=== PATIENT | female | born 1975 | race Caucasian/White ===

== ENCOUNTER → 2018-01-30 | Outpatient (CLI) | payer OTHER ==
[~2018-01-30] MED LIST: BENTYL 20 MG TA20 M1 PO; HYDROCODONE-AP1 EAC6 PO; PRILOSEC 20 MG20 MG PO; ZOFRAN ODT4 MG DISSOLVE
== END ==
LOC: RAD 11:56
DX: Z12.31 Encounter for screening mammogram for malignant neoplasm of breast (principal)

== ENCOUNTER → 2020-02-22 | Outpatient (CLI) | payer OTHER | LOC: RAD 10:13 | PROVIDERS: ATTEND Orthopaedic Surgery Sports Medicine | DX: M25.562 Pain in left knee (principal) ==

== ENCOUNTER → 2020-04-22 | Outpatient (CLI) | payer OTHER | LOC: RAD 13:58 | PROVIDERS: ATTEND Nurse Practitioner | DX: M47.27 Other spondylosis with radiculopathy, lumbosacral region (principal) ==

== ENCOUNTER → 2020-05-09 | Outpatient (CLI) | payer OTHER | LOC: MRI 10:31 | PROVIDERS: ATTEND Nurse Practitioner | DX: M51.36 Other intervertebral disc degeneration, lumbar region (principal); M47.817 Spondylosis without myelopathy or radiculopathy, lumbosacral region; M48.061 Spinal stenosis, lumbar region without neurogenic claudication; M25.78 Osteophyte, vertebrae ==

== ENCOUNTER → 2020-05-21 | Outpatient (CLI) | payer OTHER ==
[~2020-05-21] VITALS: Ht 160 cm; Wt 68.0 kg
[~2020-05-21] MED LIST changes: +IBUPROFEN 800800 M1 PO; +NABUMETONE 500500 M2 PO; +NORCO5 PO; +PEPCID20 MG PO; +TIZANIDINE HCL4 M2 PO; +XANAX 0.25 MG0.25 MG PO
--- NOTE | ~2020-05-21 | HPC ---
[facility] [address] [place] [address] PAIN MANAGEMENT CONSULTATION Name: SOLO APONTE Room #: REG Donell Chow#: [id number] Admission: 05/21/20 Attend Phys: Jean Quick DO Discharge: Date of : 75 Report #: [id number] THIS REPORT FOR: cc: Emmanuelle Ivory DNP, Mary E. DNP Johnson, James E. DO ~ DATE OF SERVICE: 05/21/2020 CHIEF COMPLAINT: Low back pain, right lower extremity pain with paresthesias. HISTORY OF PRESENT ILLNESS: As you know, the patient is a 44-year-old female who reports acute onset of low back pain with right lower extremity pain with paresthesias that began 5 months ago. She denies any specific injury or trauma that may have led to symptom development. She has trialled conservative treatment including ibuprofen [id number] therapy, chiropractic manipulation, stretching, yoga, Pilates, or even going to physical therapy without much in the way of improvement. She complains of increasing axial back pain, which appears to be due to facet arthropathy and radiation of symptoms that is now paraspinal in origin, radiating from the low back towards the upper thoracic area consistent with myofascial symptoms. Due to lack of improvement with conservative treatment options, the patient was referred to our clinic to discuss interventional therapies. The patient reports today her pain is continuous and constant, describes the pain as burning, shooting, aching, pulling, throbbing, numbness and tingling. Places current pain score 4/10, daily average at 3-4/10, worst pain has been is 7/10. The patient states that pain is exacerbated with "long periods of standing." Pain improves with nothing to date. She has been referred to our service to discuss interventional treatment options to address axial back pain and suspected lumbar radiculopathy. PAST MEDICAL HISTORY: 1. Anemia. 2. Anxiety disorder. PAST SURGICAL HISTORY: 1. Cholecystectomy. 2. Bladder sling surgery. 3. Partial hysterectomy. 4. Tonsillectomy and adenoidectomy. 5. Tubal ligation. SOCIAL HISTORY: The patient smokes half pack of tobacco per day and has done so for greater than 10 years. Denies IV or illicit drug use. Denies any chronic alcohol use. She is currently employed as a nurse, working, not receiving workmen's compensation nor is she trying to obtain disability benefits. She is [address] [address] PAIN MANAGEMENT CONSULTATION Name: SOLO APONTE Room #: REG CL Geraldo#: [id number] Admission: 05/21/20 Attend Phys: Jean Quick DO Discharge: Date of : 75 Report #: [id number] accompanied by her present in room today. She is not in litigation in regards to pain. REVIEW OF SYSTEMS: Positive for frequent and recurrent headaches, wearing corrective eyewear, hearing loss with tinnitus, chronic sinus problems with rhinitis, lightheadedness and dizziness, numbness and tingling sensations involving the right lower extremity, chronic low back pain. All other review of systems negative per 12-point review of systems other than those listed in history of present illness. Pain impact score of 48/70 indicating moderate to severe interference of daily activities secondary to pain. ALLERGIES: CLAVULANIC ACID, AMOXICILLIN, MIDAZOLAM. CURRENT MEDICATIONS: [place] 5/325 one tab every 4 hours p.r.n. for pain, ibuprofen 800 mg t.i.d., famotidine 20 mg once a day, tizanidine 4 mg p.r.n., alprazolam 0.25 mg every day. IMAGING: MRI lumbar spine obtained on 05/09/2020 shows L1-L2 with moderate posterior facet degenerative changes, no significant central canal nor neural foraminal stenosis. L2-L3, moderate posterior degenerative changes without central canal or neural foraminal narrowing. L3-L4 shows moderate to severe hypertrophic posterior facet degenerative changes, no significant central canal nor neural foraminal narrowing. L4-L5 shows generalized disk bulge eccentric towards the left, severe hypertrophic posterior facet degenerative changes and ligamentum flavum hypertrophy. No significant central canal stenosis, mild right and moderate left neural foraminal narrowing. L5-S1, severe hypertrophic posterior facet degenerative changes, no significant central canal nor neural foraminal stenosis. PHYSICAL EXAMINATION: VITAL SIGNS: Blood pressure 131/78, pulse is 92, respiratory rate 16 and unlabored. The patient is 96% on room air. Height 5 feet 3 inches tall, weight 150 pounds, BMI calculated 26.6. GENERAL: Well-developed, well-nourished, well-hydrated 44-year-old female appearing stated age, placing current pain score 4/10. HEENT: Normocephalic, atraumatic. Pupils are round, and responsive. The patient is wearing a mask in compliance with COVID-19 regulations. LUNGS: Appear clear. No appreciable wheezes, rhonchi, no rales. CARDIOVASCULAR: Regular. No appreciable gallop, no rub. ABDOMEN: Soft, nontender. EXTREMITIES: Show no clubbing, no cyanosis, no edema. MUSCULOSKELETAL: Lower extremity strength appears equal and symmetrical 5/5, intact to light touch from L1 through S2 dermatomes. Seated straight leg raising negative. Supine straight leg raising is positive on the right. [address] [address] PAIN MANAGEMENT CONSULTATION Name: SOLO APONTE Room #: REG [facility]#: [id number] Admission: 05/21/20 Attend Phys: Jean Quick DO Discharge: Date of : 75 Report #: [id number] Ivan's test is negative. Modified Gaenslen's positive for axial low back pain. Ankle clonus negative. Babinski is negative. Lumbar provocation testing is met with increasing axial back pain consistent with facet arthropathy. ASSESSMENT: 1. Symptomatic lumbar radiculopathy. 2. Severe lumbosacral spondylosis with radiculopathy. 3. Severe facet arthropathy of the lumbar spine. 4. Chronic axial back pain. 5. Chronic intractable pain. PLAN: 1. Based on today's physical exam and the history the patient has provided, the description the patient uses in regards to pain as well as location of symptoms, it would appear she is suffering from 2 different pain generators. The initial pain generator appears to be lumbar radiculopathy with radiation of symptoms down the right leg, specifically, but intermittently left lower extremity is involved. Pain is radiating all the way down to the big toe consistent with a L5 dermatomal distribution. We have discussed with the patient's treatment options to address lumbar radicular symptoms following was discussed with the patient today. We discussed physical therapy, stretching exercises, core strengthening as a treatment approach. We discussed medication suggestions utilizing neuropathic pain medication such as nortriptyline, amitriptyline, Cymbalta, Lyrica or gabapentin. This could be added to her current medications. We discussed lumbar epidural injection under fluoroscopic guidance, for which the patient was referred to our clinic. We also discussed surgical options with the patient, though at this point, we would not recommend surgery as there is no significant central canal or neural foraminal stenosis. After reviewing the risks and benefits of all proposed treatment options, the patient chose to move forward with a lumbar epidural injection under fluoroscopic guidance. The patient was advised due to third republic[employer] payer restrictions, authorization would have to be obtained before the patient could undergo a lumbar epidural injection. We will begin this authorization process immediately. Once this has been completed, we will have the patient return to undergo the first in a series of lumbar epidural injections to address lumbar radicular symptoms. 2. The patient and I did discuss that the other generator of pain in the patient's lumbar region is the facet joints at L3-L4, L4-L5 and L5-S1. This is the source of the axial back pain exacerbated with standing for long periods of time, also with bending and lifting consistent with the patient's story today. The patient and I discussed the findings of her MRI and the severity of the arthritic changes noted at the L4-L5 and L5-S1 level, specifically with some contribution at L3-L4. We discussed the treatment options with the patient today, the following was discussed with the patient and treatment options for [address] [address] PAIN MANAGEMENT CONSULTATION Name: SOLO APONTE Tyson Room #: REG BENNETT Chow#: [id number] Admission: 05/21/20 Attend Phys: Jean Quick DO Discharge: Date of : 75 Report #: [id number] the facet degenerative changes. We discussed physical therapy, stretching exercises and concentration on axial back, core strengthening as a treatment option. This will be necessary as a long-term treatment goal. Without core strengthening of the paraspinal musculature of the lumbar spine, the facet degenerative changes the patient have will continue to cause intermittent and ongoing pain. We discussed medication management utilizing a nonsteroidal anti-inflammatory as a consistent treatment option. We discussed intra-articular facet injections, medial branch nerve blocks and radiofrequency lesioning as treatment options to address facet arthropathy symptoms. Ultimately, we then discussed surgical options, though again given the findings on her examination, the findings of her MRI and the severity of the facets, I do not feel she is a candidate at this point. After reviewing the risks and benefits, the patient chose to look towards interventional treatments as a treatment option. If her symptoms do not improve with the lumbar epidural injection recommended above. 3. The patient will be started on nabumetone 500 mg dose 1 tab p.o. t.i.d. This will help with her axial back pain due to facet arthropathy and may also improve some of the pain she is experiencing with her radicular symptoms. The patient was started on this medication, watch for any side effects of dyspepsia, worsening of blood pressure, lower extremity edema. If she notes any side effects, discontinue immediately. The patient is not to take any other nonsteroidal anti-inflammatories with this treatment. A prescription was sent to her local pharmacy of #90 tablets with refills. 4. We plan to see the patient back in followup visit once we have achieved authorization to undergo lumbar epidural injection under fluoroscopic guidance to address lumbar radicular pain. The patient will be contacted once we have this authorization and made the first available appointment to return to undergo the procedure. 5. We wish to thank Emmanuelle Ivory for the referral of this patient to our clinic. We will keep you apprised of her response to treatment as we address lumbar radicular pain. Again, we wish to thank you for the opportunity to see this patient in consultation. By: [id number] Sheila Quick DO /jose alfredo
[2020-05-21 14:13] VITALS: BP 131/78
--- NOTE | 2020-05-21 15:17 | NUR ---
Pain Clinic Assessment: 1. History of Osteoarthritis: Not Applicable History of Rheumatoid Arthritis: Not Applicable 2. Height: 5 ft. 3 in. 160.0 cm. Weight: 150.0 lb. oz. 68.040 kg. Patient's BMI: 26.6 3. Vital Signs: BP: 131/78 Pulse: 92 Resp: 16 Temp: 02 Sat: 96 ECG Mon: 4. Pain Intensity: 4 5. Fall Risk: Dizziness: Y Needs help standing or walking: N Fallen in the last 3 months: N Fall risk comments: 6. Patient on Blood Thinner: None 7. History of Hypertension: N 8. Opioid Therapy greater than 6 weeks: N Opiate Contract Signed: 9. Risk Assessment Tool Provided: LOW 10. Functional Assessment Tool: 11. Recreational Drug Use: Never Drug Type: Tobacco Use: Current Every Day Smoker Tobacco Type: Cigarettes Amount or Packs/day: 1/2 How Many Years: 10 Alcohol Use: No Frequency: Quant:
== END ==
LOC: PAIN 07:16
PROVIDERS: ATTEND Anesthesiology Pain Medicine
DX: M47.27 Other spondylosis with radiculopathy, lumbosacral region (principal); M79.604 Pain in right leg; R20.2 Paresthesia of skin; G89.29 Other chronic pain; Z88.8 Allergy status to other drugs, medicaments and biological substances; Z79.899 Other long term (current) drug therapy

== ENCOUNTER → 2020-06-03 | Outpatient (CLI) | payer OTHER ==
[~2020-06-03] VITALS: Ht 154.9 cm; Wt 70.9 kg
[~2020-06-03] MED LIST changes: +VITAMIN D31250 MC1 PO
[2020-06-03 10:00] VITALS: BP 123/80
--- NOTE | 2020-06-03 10:18 | NUR ---
Pain Clinic Assessment: 1. History of Osteoarthritis: BACK History of Rheumatoid Arthritis: Not Applicable 2. Height: 5 ft. 1 in. 154.9 cm. Weight: 156.4 lb. oz. 70.943 kg. Patient's BMI: 29.6 3. Vital Signs: BP: 123/80 Pulse: 103 Resp: 14 Temp: 02 Sat: 98 ECG Mon: 4. Pain Intensity: 6 5. Fall Risk: Dizziness: Y Needs help standing or walking: N Fallen in the last 3 months: N Fall risk comments: 6. Patient on Blood Thinner: None 7. History of Hypertension: N 8. Opioid Therapy greater than 6 weeks: N Opiate Contract Signed: 9. Risk Assessment Tool Provided: LOW 10. Functional Assessment Tool: 11. Recreational Drug Use: Never Drug Type: Tobacco Use: Current Every Day Smoker Tobacco Type: Cigarettes Amount or Packs/day: 1/2 How Many Years: Alcohol Use: No Frequency: Quant:
--- NOTE | 2020-06-04 14:53 | HPC ---
[facility] [place] [address] PAIN MANAGEMENT CONSULTATION Name: SOLO APONTE Room #: REG Donell Chow#: [id number] Admission: 06/03/20 Attend Phys: Jean Quick DO Discharge: Date of : 75 Report #: [id number] THIS REPORT FOR: cc: Emmanuelle Ivory DNP, Mary E. DNP Johnson, James E. DO ~ DATE OF SERVICE: 06/03/2020 REFERRING PHYSICIAN: NELSON Munoz CHIEF COMPLAINT: Low back pain, right lower extremity pain with paresthesias, left lower extremity pain. HISTORY OF PRESENT ILLNESS: As you know, the patient is a 44-year-old female with acute onset of low back pain, right lower extremity pain with paresthesias began approximately 5 months ago. She has had a progression of symptoms, now involving left lower extremity from a pain standpoint, no paresthesias. She denies any injury or trauma. We saw the patient in consultation per the request of nurse practitioner, Emmanuelle Ivory, on 05/21/2020, the patient diagnosed with severe lumbosacral spondylosis with radiculopathy and severe facet arthropathy of the lumbar spine combining to cause symptomatic lumbar radiculopathy. She was established today's appointment to undergo lumbar epidural injection. She returns today in followup visit reporting pain score of 6/10. There has been no change in her medical issues since our last visit. No new injury or trauma. The patient has not had a COVID injection in the last 2 weeks. ALLERGIES: CLAVULANIC ACID, AMOXICILLIN, MIDAZOLAM. CURRENT MEDICATIONS: [place], ibuprofen, famotidine, tizanidine, alprazolam. SOCIAL HISTORY: The patient smokes half pack of tobacco per day, has done so for greater than 10 years. Denies IV or illicit drug use. Denies any chronic alcohol use. She is employed as a nurse, working, not receiving workmen's compensation, unaccompanied today. IMAGING: No new imaging available. PHYSICAL EXAMINATION: VITAL SIGNS: Blood pressure 123/80, pulse 103, respiratory rate 14 and unlabored. The patient 98% on room air. Height 5 feet 1 inch tall, weight 156.4 pounds, BMI calculated 29.6. GENERAL: Well-developed, well-nourished, well-hydrated 44-year-old female appearing stated age, pain is rated today 6/10. HEENT: Normocephalic and atraumatic. Pupils are round and responsive. The patient is wearing a mask in compliance with COVID-19 regulations. EXTREMITIES: Show no clubbing, no cyanosis[place] [address] PAIN MANAGEMENT CONSULTATION Name: SOLO APONTE Room #: REG [facility].#: [id number] Admission: 06/03/20 Attend Phys: Jean Quick DO Discharge: Date of : 75 Report #: [id number] MUSCULOSKELETAL: Seated straight leg raising is negative. Supine straight leg raising positive on the right. Ivan's test is negative. Modified Gaenslen's positive for axial low back pain. Ankle clonus negative. Gait is mildly antalgic favoring right lower extremity. ASSESSMENT: 1. Symptomatic lumbar radiculopathy. 2. Severe lumbosacral spondylosis with radiculopathy. 3. Severe facet arthropathy of the lumbar spine. 4. Chronic axial back pain. 5. Chronic intractable pain. PLAN: 1. The patient returns today in followup visit having achieved authorization to undergo lumbar epidural injection under fluoroscopic guidance. She has been advised of the risks and the benefits of a lumbar epidural injection. These risks include but are not necessarily limited to bleeding, bruising, infection, worsening pain, no relief of pain, also risk of temporary or permanent muscle weakness, temporary or permanent nerve damage, possible paralysis, post-dural puncture headache and . The patient states understood and wished to proceed. 2. No medication changes made at today's visit. The patient will continue current medical therapy as prior prescribed. 3. We plan to see the patient back in followup visit on an as needed basis for possible next in the series of epidural injections. We are hopeful the patient will see good and prolonged benefit with today's procedure. We will keep you apprised of response to treatment. We will see her back in 30 days. DESCRIPTION OF PROCEDURE: L5-S1 interlaminar epidural steroid injection under fluoroscopic guidance. This is the first procedure of the first series that the patient is undergoing. After obtaining written consent, the patient was taken back to the fluoroscopy suite, placed in a prone position with pillow under the abdomen to decrease lumbar lordosis. The skin overlying the lumbosacral area was then prepped and draped in aseptic fashion. The L5-S1 vertebral interspace was then identified by AP fluoroscopy. The skin and subcutaneous tissue overlying the target site of injection was anesthetized with 3 mL 1% lidocaine. A(n) 20-gauge 3-1/2 inch Tuohy needle was then advanced under fluoroscopic guidance towards the epidural space using a midline approach. The epidural space was identified using loss of resistance to air technique. After negative aspiration for heme or cerebrospinal fluid, a total of 1 mL of Omnipaque was injected. A lumbar epidurogram was confirmed using both AP and lateral fluoroscopy. After negative aspiration for heme or cerebrospinal fluid, 5 mL of [facility] [address] [place] [address] PAIN MANAGEMENT CONSULTATION Name: SOLO APONTE Room #: REG BENNETT Chow#: [id number] Admission: 06/03/20 Attend Phys: Jean Quick DO Discharge: Date of : 75 Report #: [id number] solution containing 2 mL 40 mg per mL, 80 mg total triamcinolone along with 3 mL of lidocaine 1% was injected in increments. Contrast spread was noted posterior epidural space. The needle was then retracted approximately half way and needle tract flushed with 1 mL of 1% lidocaine. Needle was then removed. There were no apparent sensory or motor deficits in the lower extremity following the procedure. A sterile bandage was placed over the injection site. The heart rate, pulse, oximetry and blood pressure were continuously monitored after the procedure. There were no apparent complications. The patient tolerated the procedure well and was carefully escorted to the recovery room in stable condition. There were no apparent complications. After meeting discharge criteria, the patient was then discharged home. <ELECTRONICALLY SIGNED> By: Jean Quick DO 06/04/20 1453 [id number] 1322 Jean Quick DO /nt
== END | disposition home or self-care (01) ==
LOC: PAIN 06:52
PROVIDERS: ATTEND Anesthesiology Pain Medicine
DX: M47.27 Other spondylosis with radiculopathy, lumbosacral region (principal); M47.26 Other spondylosis with radiculopathy, lumbar region; M54.9 Dorsalgia, unspecified; G89.29 Other chronic pain; F17.210 Nicotine dependence, cigarettes, uncomplicated; Z98.890 Other specified postprocedural states; Z79.899 Other long term (current) drug therapy; Z88.2 Allergy status to sulfonamides; Z88.8 Allergy status to other drugs, medicaments and biological substances

== ENCOUNTER → 2020-07-08 | Outpatient (CLI) | payer OTHER ==
[~2020-07-08] VITALS: Ht 154.9 cm; Wt 70.9 kg
[~2020-07-08] MED LIST changes: +NEURONTIN300 MG PO; +RELAFEN500 M1 PO
--- NOTE | ~2020-07-08 | HPC ---
[address] [address] PAIN MANAGEMENT CONSULTATION Name: SOLO APONTE Room #: REG BENNETT Chow#: [id number] Admission: 07/08/20 Attend Phys: Jean Quick DO Discharge: Date of : 75 Report #: [id number] THIS REPORT FOR: cc: Emmanuelle Ivory DNP, Mary E. DNP Johnson, James E. DO ~ DATE OF SERVICE: 07/08/2020 CHIEF COMPLAINT: Low back pain, right lower extremity pain with paresthesias, left lower extremity pain. HISTORY OF PRESENT ILLNESS: As you know, the patient is a 44-year-old female with acute onset of low back pain, right lower extremity pain with paresthesias, intermittent left lower extremity pain with paresthesias began 5 months ago. We saw the patient in consultation per the request of the primary care team, seen on 05/21/2020. The patient diagnosed with symptomatic lumbar radiculopathy, severe lumbosacral spondylosis with radiculopathy and severe facet arthropathy of the lumbar spine. She underwent the first in a series of lumbar epidural injections, 06/03/2020. She reports with that injection she received improvement in symptoms, but continues to experience ongoing pain. She is now placing pain score 7/10. She returns today in followup visit to discuss the possibility of beginning medication management to address neuropathic symptoms. We discussed this at our last visit indicating that we would start her on medications that can be continued by her primary care team in the form of neuropathic medications. She wishes to trial those medications today. ALLERGIES: CLAVULANIC ACID, AMOXICILLIN, AND MIDAZOLAM. CURRENT MEDICATIONS: [place], ibuprofen, famotidine, tizanidine, alprazolam. SOCIAL HISTORY: The patient continues to smoke half pack tobacco per day, has done so for greater than 10 years. Denies IV or illicit drug use. Denies any chronic alcohol use. 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 IMAGING: No new imaging available. PHYSICAL EXAMINATION: VITAL SIGNS: Blood pressure 121/77, pulse 78, respiratory rate 14 and unlabored. The patient is 97% on room air. Height 5 feet 1 inch tall, weight 156.2 pounds and BMI calculated 29.5. GENERAL: Well-developed, well-nourished, well-hydrated 44-year-old female appearing stated age, pain is rated today at 7/10. HEENT: Normocephalic, atraumatic. Pupils equal, round, and responsive. The patient is wearing a mask in compliance with COVID-19 regulations. EXTREMITIES: Show no clubbing, no cyanosis, [place] [address] PAIN MANAGEMENT CONSULTATION Name: SOLO APONTE Room #: REG BENNETT Chow#: [id number] Admission: 07/08/20 Attend Phys: Jean Quick DO Discharge: Date of : 75 Report #: [id number] MUSCULOSKELETAL: Seated straight leg raising negative. Supine straight leg raising mildly positive on the right. Ivan's test negative. Modified Gaenslen's positive for axial low back pain. Ankle clonus negative. Babinski is negative. ASSESSMENT: 1. Symptomatic lumbar radiculopathy. 2. Severe lumbosacral spondylosis with radiculopathy. 3. Severe facet arthropathy of the lumbar spine. 4. Chronic axial back pain. 5. Chronic intractable pain. PLAN: 1. The patient returns today in followup visit indicating that she did not receive much in the way of improvement with the epidural injection, though her pain has been reduced from the previous evaluation. She does not feel she received greater than 50% improvement in overall symptoms. This unfortunately precludes her from moving forward with next in the series of epidural injections and given the lack of significant efficacy, we would not recommend continuing to utilize those injections. We discussed with the patient the findings of her MRI and the treatment options she has remaining available. We discussed physical therapy, stretching exercises and core strengthening as the gold standard treatment for axial back pain due to facet arthropathy. We discussed suggestions and medication management. We would initially start her on a neuropathic medication and a nonsteroidal anti-inflammatory. If these are effective, then she can follow up with PCP to continue treatment. We discussed surgical options with the patient, which would include a fusion of the L4-L5 and L5-S1 level to decrease movement across the area and reduce her ongoing pain. After reviewing risks and benefits of all proposed treatment options, the patient chose to make adjustments in medication management. 2. The patient was started on gabapentin 300 mg dose. She will start 1 tab p.o. at bedtime for 7 nights, then increase to 2 tabs p.o. at bedtime for 7 nights. No improvement in symptoms, no side effects, then increase to 1 tab in the morning, 2 tablets at night for 7 days. If no improvement in symptoms, no side effects of sleepiness, disorientation, confusion, mental slowing, then 2 tabs in the a.m., 2 tabs at night. She was given gabapentin 300 mg tablets, #120 with no refills. The patient will contact our clinic once she reaches an efficacious level or side effects she cannot tolerate. 3. Discussed with the patient today the fact that her smoking is directly leading to worsening of chronic pain. There have been multiple pathways proposed with the most consistent pathway is that of the descending pain pathway and how nicotinic receptors are affected by chronic nicotine exposure. If she is able to reduce smoking, she will likely see improvement in her axial back [facility] [address] [place] [address] PAIN MANAGEMENT CONSULTATION Name: SOLO APONTE [id number] Admission: 07/08/20 Attend Phys: Jean Quick DO Discharge: Date of : 75 Report #: [id number] pain. The patient will consider this as an option. 4. We will see the patient back in followup visit in 30 days. We will discuss the efficacy of the gabapentin adjustments made today. We are hopeful the patient will see good benefit with this treatment. We would not recommend further interventional treatments on this patient as she indicates that she believes that she received minimal benefit and may actually increased her axial back symptoms. She does have the options of other treatments as indicated above. We will discuss those again at followup visit. By: [id number] Jean Quick DO /nt
[2020-07-08 10:57] VITALS: BP 121/77
--- NOTE | 2020-07-08 11:22 | NUR ---
Pain Clinic Assessment: 1. History of Osteoarthritis: BACK History of Rheumatoid Arthritis: Not Applicable 2. Height: 5 ft. 1 in. 154.9 cm. Weight: 156.2 lb. oz. 70.852 kg. Patient's BMI: 29.5 3. Vital Signs: BP: 121/77 Pulse: 78 Resp: 14 Temp: 02 Sat: 97 ECG Mon: 4. Pain Intensity: 7 5. Fall Risk: Dizziness: N Needs help standing or walking: N Fallen in the last 3 months: N Fall risk comments: 6. Patient on Blood Thinner: None 7. History of Hypertension: N 8. Opioid Therapy greater than 6 weeks: N Opiate Contract Signed: 9. Risk Assessment Tool Provided: LOW 10. Functional Assessment Tool: 11. Recreational Drug Use: Never Drug Type: Tobacco Use: Current Every Day Smoker Tobacco Type: Cigarettes Amount or Packs/day: 0.5 How Many Years: 15 Alcohol Use: No Frequency: Quant:
== END ==
LOC: PAIN 06:52
PROVIDERS: ATTEND Anesthesiology Pain Medicine
DX: M47.26 Other spondylosis with radiculopathy, lumbar region (principal); M47.817 Spondylosis without myelopathy or radiculopathy, lumbosacral region; M54.9 Dorsalgia, unspecified; G89.29 Other chronic pain; F17.200 Nicotine dependence, unspecified, uncomplicated; Z79.899 Other long term (current) drug therapy; Z88.8 Allergy status to other drugs, medicaments and biological substances; Z88.1 Allergy status to other antibiotic agents

== ENCOUNTER → 2020-12-17 | Outpatient (CLI) | payer OTHER ==
[2020-12-17 10:53] LABS: ABSOLUTE NEUTROPHILS 3.9 thou/uL (1.4-8.2); BASOPHILS 0.4 % (0.0-2.0); EOSINOPHILS 1.1 % (0.0-3.0); HEMATOCRIT 45.8 % (37.0-47.0); HEMOGLOBIN 15.2 gm/dL (12.0-15.0); LYMPHOCYTES 31.3 % (24.0-44.0); MCH 28.7 pg (26.0-34.0); MCHC 33.3 g/dL (28.0-37.0); MCV 86.3 fL (80.0-100.0); MONOCYTES 5.7 % (1.0-8.0); PLATELET COUNT 252 thou/uL (150-400); POLYS 61.5 % (36.0-66.0); RBC 5.31 mil/uL (4.20-5.00); RDW 13.6 % (10.5-14.5); WBC 6.3 thou/uL (4.0-11.0)
[2020-12-17 11:19] LABS: ANION GAP 8 mmol/L (7-16); BUN 12 mg/dL (7-18); CHLORIDE 107 mmol/L (98-107); CO2 26 mmol/L (21-32); CREATININE 0.9 mg/dL (0.6-1.0); GLUCOSE 93 mg/dL (74-106); POTASSIUM 4.3 mmol/L (3.5-5.1); SGOT 23 U/L (15-37); SGPT 32 U/L (14-59); SODIUM 141 mmol/L (136-145); TOTAL BILIRUBIN 0.4 mg/dL (0.2-1.0); TOTAL PROTEIN 7.4 g/dL (6.4-8.2)
[2020-12-19 20:06] LABS: ANA INTERPRETATION Negative (())
== END ==
LOC: LAB 09:22
PROVIDERS: ATTEND Internal Medicine Rheumatology
DX: M25.50 Pain in unspecified joint (principal)